=== PATIENT | female | born 1980 | race Caucasian/White ===

== ENCOUNTER 2016-06-11 18:14 | Emergency (ER) | payer OTHER ==
--- NOTE | ~2016-06-11 | CT4 ---
[facility] A Service of [facility] RADIOLOGY TEXT RESULTS PATIENT: AIMEE AIKEN LOCATION: SED : 82 UNIT #: [id number] AGE: [address]: Mickey Wiseman MD SEX: F ORDER DR: [id number] [place] [id number] E MR#: [id number] Acc #: [id number] NAME: AIMEE AIKEN : 1980 SEX: F STUDY DATE/TIME: 06/11/2016 18:45 UNIT: SED ROOM: STUDY DESCRIPTION: CT Abd and Pelv Wo Cont Attending Physician: Mickey Wiseman M.D. Ordering Physician: Gama Miles M.D. MEDICAL IMAGING REPORT This report is preliminary unless electronic signature is present. EXAM CT of the abdomen and pelvis without contrast INDICATIONS Nausea and right-sided abdominal pain for [address] of the abdomen and pelvis was performed without contrast. Coronal and sagittal reformatted images were obtained. This CT exam was performed with one or more of the following radiation dose reduction techniques: Automatic exposure control, adjustment of mA and/or kV according to patient size, and iterative reconstruction. No comparisons. FINDINGS Lung bases are clear. Liver, gallbladder and spleen are unremarkable. No evidence of renal or ureteral stone. There is no hydronephrosis. The adrenal glands are unremarkable. The pancreas is unremarkable. PELVIS: Trace free fluid likely physiologic. The colon is unremarkable. Normal appendix. The bone windows are unremarkable. IMPRESSION No acute abnormality. No evidence of renal stone. Normal appendix. Dictated by... Gregory Saucedo M.D. THIS IS AN ELECTRONICALLY VERIFIED REPORT Gregory Saucedo M.D. at 06/12/2016 10:04 AM ARS/psc [facility] A Service [facility] RADIOLOGY TEXT RESULTS PATIENT: AIMEE AIKEN LOCATION: SED : [birth year] UNIT #: [id number] AGE: [address]: Mickey Wiseman MD SEX: F ORDER DR: TD: 06/11/2016 23:20 JOB #: [id number] MEDICAL IMAGING REPORT Page 1 of 1
[2016-06-11 17:56] LABS: URINE SOURCE CLEAN CATCH
[2016-06-11 17:58] LABS: URINE APPEARANCE HAZY; URINE BILIRUBIN NEG (NEG); URINE BLOOD NEG (NEG); URINE COLOR YELLOW; URINE GLUCOSE NEG (NORM); URINE KETONE NEG (NEG); URINE LEUKOCYTE ESTERASE NEG (NEG); URINE NITRATE NEG (NEG); URINE PROTEIN NEG (NEG); URINE UROBILINOGEN 0.2 MG/DL (NORM)
[2016-06-11 17:59] LABS: MICRO INDICATED? NO
[~2016-06-11 18:14] MED LIST: BUSPIRONE HCL10 MG PO; PROZAC40 MG PO
[2016-06-11 19:03] LABS: ALBUMIN SERUM 4.1 g/dL (3.5-5.0); BILIRUBIN,TOTAL 0.7 mg/dL (0.2-2.0); BUN/CREATININE RATIO 17.14; CALCIUM SERUM 9.1 mg/dL (8.4-10.2); CREATININE SERUM 0.7 mg/dL (0.6-1.4); GLOM FILT RATE Estimated 112.3 mL/min (>60); POTASSIUM 3.9 mmol/L (3.5-5.1); PROTEIN TOTAL SERUM 6.6 g/dL (6.0-8.3)
== END 2016-06-11 20:23 | disposition home or self-care (01) ==
LOC: SED 18:14
PROVIDERS: Emergency Medicine
DX: R10.9 Unspecified abdominal pain (principal); Z79.899 Other long term (current) drug therapy
CPT/HCPCS: 36415; 74176; 80053; 81003; 84703; 96374; 96375; 99284; J2270; J2405

== ENCOUNTER 2016-06-13 09:52 | Emergency (ER) | payer OTHER | END 2016-06-13 10:26 | disposition home or self-care (01) | LOC: SED 09:52 | DX: R59.0 Localized enlarged lymph nodes (principal); N89.8 Other specified noninflammatory disorders of vagina; R11.2 Nausea with vomiting, unspecified; Z79.899 Other long term (current) drug therapy | CPT/HCPCS: 96372; 99283; J0696; J1885 ==

== ENCOUNTER 2016-07-19 10:18 | Emergency (ER) | payer OTHER | END 2016-07-19 11:35 | disposition home or self-care (01) | LOC: SED 10:18 | DX: S00.33XA Contusion of nose, initial encounter (principal); F41.9 Anxiety disorder, unspecified; F32.9 Major depressive disorder, single episode, unspecified; F17.200 Nicotine dependence, unspecified, uncomplicated; W22.8XXA Striking against or struck by other objects, initial encounter; Y92.9 Unspecified place or not applicable | CPT/HCPCS: 99283 ==

== ENCOUNTER 2016-08-04 10:58 | Emergency (ER) | payer OTHER | END 2016-08-04 13:30 | disposition home or self-care (01) | LOC: CED 10:58 → CFTX 10:58 | DX: S39.012A Strain of muscle, fascia and tendon of lower back, initial encounter (principal); F41.9 Anxiety disorder, unspecified; F32.9 Major depressive disorder, single episode, unspecified; F17.210 Nicotine dependence, cigarettes, uncomplicated; Z98.51 Tubal ligation status; Z88.5 Allergy status to narcotic agent; W18.42XA Slipping, tripping and stumbling without falling due to stepping into hole or opening, initial encounter; Y92.9 Unspecified place or not applicable | CPT/HCPCS: 84703; 96372; 99283; J1885 ==

== ENCOUNTER 2016-09-08 01:03 | Emergency (ER) | payer OTHER ==
[~2016-09-08] VITALS: Ht 162.6 cm; Wt 59.0 kg
--- NOTE | ~2016-09-08 | EKG ---
PATIENT: AIMEE AIKEN UNIT #: [id number] Ventricular Rate: 62 BPM Atrial Rate: 62 BPM P-R Interval: 162 ms QRS Duration: 84 ms Q-T Interval: 388 ms QTC Calculation(Bezet): 393 ms P [place]: 41 degrees Calculated R [place]: 21 degrees Calculated T [place]: 60 degrees Diagnosis Line: Normal sinus rhythm Diagnosis Line: Normal ECG Diagnosis Line: No previous ECGs available Diagnosis Line: Confirmed by NASRIN ANGELO MD ([id number]) on Diagnosis Line: 09/09/2016 12:44:59 PM INTERPRETING MD: GI PRATT
--- NOTE | ~2016-09-08 | CR72 ---
[facility] A Service of [facility] RADIOLOGY TEXT RESULTS PATIENT: AIMEE AIKEN LOCATION: SED : [birth year] UNIT #: [id number] AGE: [address]: Mickey Wiseman MD SEX: F ORDER DR: [id number] [place] [id number] E MR#: [id number] Acc #: [id number] NAME: AIMEE AIKEN : 1980 SEX: F STUDY DATE/TIME: 09/08/2016 1:50 UNIT: SED ROOM: STUDY DESCRIPTION: CR Chest Single View Portable Attending Physician: Mickey Wiseman M.D. Ordering Physician: Mickey Wiseman M.D. Primary Care Physician: No Primary Care Physician MEDICAL IMAGING REPORT This report is preliminary unless electronic signature is present. EXAM Portable chest INDICATIONS Chest pain today. PROCEDURE Frontal view chest. COMPARISON STUDIES None. FINDINGS Heart size normal. Lungs are clear. No pleural fluid. No pneumothorax. IMPRESSION No active process Dictated by... Pillo Oneill M.D. THIS IS AN ELECTRONICALLY VERIFIED REPORT Pillo Oneill M.D. at 09/08/2016 10:22 PM FAISAL/gonzales TD: 09/08/2016 09:12 JOB #: [id number] MEDICAL IMAGING REPORT Page 1 of 1
[2016-09-08 01:48] LABS: POC - CKMB <1.0 ng/mL (0.0-7.9); POC - TROPONIN <0.05 ng/mL (<=0.05)
[2016-09-08 01:57] LABS: BASOPHIL# 0.1 X10e3 (0-0.3); BASOPHIL% 0.7 % (0-2.5); EOSINOPHIL# 0.2 X10e3 (0-0.7); EOSINOPHIL% 2.8 % (0.0-7.0); HEMATOCRIT 43.1 % (35.0-45.0); HEMOGLOBIN 14.7 gm/dL (12.0-16.0); LYMPHOCYTE# 3.2 X10e3 (1.0-3.5); LYMPHOCYTE% 41.2 % (17.0-45.0); MEAN CORPUSCULAR HEMOGLOBIN 32.6 PG (28-34); MEAN PLATELET VOLUME 8.9 FL (6.5-11.5); MONOCYTE# 0.6 X10e3 (0-1.0); MONOCYTE% 7.9 % (3.0-12.0); NEUTROPHIL# 3.7 X10e3 (1.5-7.1); NEUTROPHIL% 47.4 % (40-75); PLATELET COUNT 220 X10e3 (140-420); RED BLOOD COUNT 4.49 X10e (3.90-5.30); RED CELL DISTRIBUTION WIDTH 12.6 % (11.0-15.5); WHITE BLOOD COUNT 7.8 X10e3 (4.0-10.5)
[2016-09-08 01:59] LABS: DIFF IND NO
[2016-09-08 02:07] LABS: BUN/CREATININE RATIO 22.5; CALCIUM SERUM 8.7 mg/dL (8.4-10.2); CREATININE SERUM 0.8 mg/dL (0.6-1.4); GLOM FILT RATE Estimated 95.6 mL/min (>60); POTASSIUM 4.2 mmol/L (3.5-5.1)
[2016-09-08 03:56] LABS: POC - CKMB <1.0 ng/mL (0.0-7.9)
[2016-09-08 03:57] LABS: POC - TROPONIN <0.05 ng/mL (<=0.05)
== END 2016-09-08 04:15 | disposition home or self-care (01) ==
LOC: SED 01:03
PROVIDERS: Emergency Medicine
DX: R07.89 Other chest pain (principal); F41.9 Anxiety disorder, unspecified; F17.200 Nicotine dependence, unspecified, uncomplicated
CPT/HCPCS: 36415; 71010; 80048; 82553; 84484; 85025; 93005; 96374; 99285

== ENCOUNTER → 2016-10-01 | Outpatient (CLI) | payer OTHER ==
[~2016-10-01] MED LIST changes: +KLONOPIN0.5 MG PO
--- NOTE | ~2016-10-01 | US17 ---
[facility] A Service of [facility] RADIOLOGY TEXT RESULTS PATIENT: AIMEE AIKEN LOCATION: [facility] : 81 UNIT #: [id number] AGE: [address]: VERNA ZENG APRN SEX: F ORDER DR: [id number] [facility] [address] [place], [place] [address] [id number] O MR#: [id number] Acc #: [id number] NAME: AIMEE AIKEN : 1980 SEX: F STUDY DATE/TIME: 10/01/2016 14:25 UNIT: [facility] ROOM: STUDY DESCRIPTION: US Breast Bilateral Attending Physician: Verna Zeng Aprn Referring Physician: Verna Zeng Aprn Ordering Physician: Verna Zeng Aprn Primary Care Physician: Verna Zeng Aprn MEDICAL IMAGING REPORT This report is preliminary unless electronic signature is present EXAM Bilateral breast ultrasound, 10/01/2016. HISTORY Yellow nipple discharge bilaterally for 3 months. No palpable abnormality. FINDINGS Ultrasound of the periareolar aspects of both breast reveals normal fibroglandular tissue. No cystic or solid mass lesions were identified. Minimally dilated ducts are seen in the subareolar left breast. Consider surgical consultation if bilateral breast discharge persists. IMPRESSION No sonographic evidence of malignancy in the periareolar aspects of both breasts. If bilateral breast discharge persists consider correlation with surgical consultation. Patients over the age of 40 are entered into a reminder system with target due date for the next mammogram. A result letter will also be sent to the patient. BIRADS: 1 Negative. Dictated by... Benito Overton M.D. THIS IS AN ELECTRONICALLY VERIFIED REPORT Benito Overton M.D. at 10/02/2016 2:37 PM JUSTYNA/meet TD: 10/01/2016 23:09 [facility] A Service of [facility] RADIOLOGY TEXT RESULTS PATIENT: AIMEE AIKEN [id number] [birth year] UNIT #: [id number] AGE: [address]: VERNA ZENG APRN SEX: F ORDER DR: JOB #: [id number] MEDICAL IMAGING REPORT Page 1 of 1 COPY
--- NOTE | ~2016-10-01 | MY26 ---
[facility] A Service of [facility] RADIOLOGY TEXT RESULTS PATIENT: AIMEE AIKEN LOCATION: [facility] : [birth year] UNIT #: [id number] AGE: [address]: VERNA ZENG APRN SEX: F ORDER DR: [id number] [facility] [address] [place], [place] [address] [id number] O MR#: [id number] Acc #: [id number] NAME: AIMEE AIKEN : 1980 SEX: F STUDY DATE/TIME: 10/01/2016 14:02 UNIT: [facility] ROOM: STUDY DESCRIPTION: MY [facility] DIAGNOSTIC W/ CAD BILAT Attending Physician: Verna Zeng Aprn Referring Physician: Verna Zeng Aprn Ordering Physician: Verna Zeng Aprn Primary Care Physician: Verna Zeng Aprn MEDICAL IMAGING REPORT This report is preliminary unless electronic signature is present EXAM Bilateral digital diagnostic mammogram with CAD device, 10/01/2016 HISTORY Bilateral yellow nipple discharge for 3 months and breast pain. No palpable abnormality. FINDINGS Bilateral digital diagnostic mammogram was performed in craniocaudal, mediolateral oblique and mediolateral projections demonstrating heterogeneously dense fibroglandular tissue which may limit the sensitivity of mammography. There is no suspicious mass or cluster of microcalcifications. The films have been reviewed by a FDA-approved CAD device. Ultrasound of the periareolar aspects of both breasts revealed that no abnormal finding within the right breast and only minimally dilated ducts in the subareolar left breast. Correlation with a surgical consultation is recommended if bilateral breast discharge persists. IMPRESSION No mammographic evidence of malignancy. Bilateral breast ultrasound was negative on the right and demonstrated only minimally dilated ducts in the subareolar left breast. Recommend surgical consultation if bilateral breast discharge persists. Annual mammogram is recommended with the patient reaches age of 40 or sooner if clinically indicated. BIRADS: 1 Negative. Patients over the age of 40 are entered into a reminder system with target due date for the next mammogram. A result letter will also be sent to the patient. [facility] A Service of [facility] RADIOLOGY TEXT RESULTS PATIENT: AIMEE AIKEN LOCATION: [facility] : [birth year] UNIT #: [id number] AGE: [address]: VERNA ZENG APRN SEX: F ORDER DR: Dictated by... Benito Overton M.D. THIS IS AN ELECTRONICALLY VERIFIED REPORT Benito Overton M.D. at 10/02/2016 2:37 PM KRT/pcl TD: 10/01/2016 21:57 JOB #: [id number] MEDICAL IMAGING REPORT Page 1 of 1 COPY
== END | disposition home or self-care (01) ==
LOC: CWCC 13:20
DX: N64.4 Mastodynia (principal); N64.52 Nipple discharge; Z80.3 Family history of malignant neoplasm of breast; N60.42 Mammary duct ectasia of left breast
CPT/HCPCS: 76641; G0204

== ENCOUNTER → 2016-10-01 | Outpatient (CLI) | payer OTHER ==
--- NOTE | ~2016-10-01 | CR181 ---
[facility] A Service of [facility] RADIOLOGY TEXT RESULTS PATIENT: AIMEE AIKEN LOCATION: [facility] : [birth year] UNIT #: [id number] AGE: [address]: VERNA ZENG APRN SEX: F ORDER DR: [id number] [facility] [address] [place], [place] [address] [id number] O MR#: [id number] Acc #: [id number] NAME: AIMEE AIKEN : 1980 SEX: F STUDY DATE/TIME: 10/01/2016 15:14 UNIT: [facility] ROOM: STUDY DESCRIPTION: CR Lumbar Spine 2 or 3 Views Attending Physician: Verna Zeng Aprn Referring Physician: Verna Zeng Aprn Ordering Physician: Verna Zeng Aprn Primary Care Physician: Verna Zeng Aprn MEDICAL IMAGING REPORT This report is preliminary unless electronic signature is present EXAM Lumbar spine 3 views, 10/01/2016 HISTORY Low back pain, pain in right side of lower back for 2 days. No known injury. FINDINGS Three views of the lumbar spine demonstrate no fracture. The posterior vertebral bodyline is intact and there is no anterolisthesis or retrolisthesis. The disc spaces are normally maintained. Scoliosis of the thoracolumbar spine is noted. IMPRESSION Thoracolumbar scoliosis. No acute abnormality in the lumbar spine. Dictated by... Benito Overton M.D. THIS IS AN ELECTRONICALLY VERIFIED REPORT Benito Overton M.D. at 10/02/2016 2:38 PM KRT/elke TD: 10/02/2016 00:14 JOB #: [id number] MEDICAL IMAGING REPORT Page 1 of 1 COPY
== END | disposition home or self-care (01) ==
LOC: CRAD 14:57
DX: M54.9 Dorsalgia, unspecified (principal); M41.9 Scoliosis, unspecified
CPT/HCPCS: 72100

== ENCOUNTER 2016-10-21 09:04 | Emergency (ER) | payer OTHER ==
[~2016-10-21] VITALS: Ht 163.8 cm; Wt 57.1 kg
[~2016-10-21 09:04] MED LIST changes: -KLONOPIN0.5 MG PO
[2016-10-21] MEDS ORDERED: KLONOPIN0.5 MG PO (09:23)
== END 2016-10-21 10:04 | disposition home or self-care (01) ==
LOC: SED 09:04
DX: J02.0 Streptococcal pharyngitis (principal); F17.210 Nicotine dependence, cigarettes, uncomplicated; Z79.899 Other long term (current) drug therapy; Z88.5 Allergy status to narcotic agent; Z88.8 Allergy status to other drugs, medicaments and biological substances
CPT/HCPCS: 99283

== ENCOUNTER 2016-11-05 14:59 | Emergency (ER) | payer OTHER ==
--- NOTE | ~2016-11-05 | CT101 ---
[facility] A Service of [facility] RADIOLOGY TEXT RESULTS PATIENT: AIMEE AIKEN LOCATION: SED : 82 UNIT #: [id number] AGE: [address]: RELL JACINTO SEX: F ORDER DR: [id number] [place] [id number] E MR#: [id number] Acc #: [id number] NAME: AIMEE AIKEN : 1980 SEX: F STUDY DATE/TIME: 11/05/2016 15:41 UNIT: SED ROOM: STUDY DESCRIPTION: CT Maxillofacial Area Wo Cont Attending Physician: Rell Jacinto Aprn Ordering Physician: Rell Jacinto Aprn Primary Care Physician: Verna Lane Aprn MEDICAL IMAGING REPORT This report is preliminary unless electronic signature is present. EXAM Maxillofacial CT without contrast date 11/05/[address] without contrast with coronal reformats. This CT exam was performed with one or more of the following radiation dose reduction techniques: automatic control, adjustment of mA and/or kV according to patient size, and iterative reconstruction. COMPARISON None. CLINICAL HISTORY Trismus since yesterday and unable to move jaw today. FINDINGS The frontal sinuses are normal. There is mild right anterior ethmoid mucosal thickening but the ethmoid air cells and sphenoid chambers are normal. There is right maxillary sinus mucosal thickening in the right maxillary air-fluid level and moderate left maxillary mucosal thickening. Nasal septum deviates rightward. There is no fracture or bone erosion or destruction. The bony features of the mandible and maxilla are otherwise normal. IMPRESSION 1. Right maxillary mucosal thickening and air-fluid level without bone erosion or destruction suggesting sinusitis with left maxillary and slight right anterior ethmoid mucosal thickening. 2. The bony structures of the mandible and maxilla are unremarkable and unenhanced images of the adjacent soft tissues are normal. No [facility] A Service of [facility] RADIOLOGY TEXT RESULTS PATIENT: AIMEE AIKEN LOCATION: SED : [birth year] UNIT #: [id number] AGE: [address]: RELL JACINTO SEX: F ORDER DR: inflammatory changes suggested by the appearance of the adjacent soft tissues nor is there suspicious mass or suspicious adenopathy seen on these images. Dictated by... Tian Alberto M.D. THIS IS AN ELECTRONICALLY VERIFIED REPORT Tian Alberto M.D. at 11/07/2016 2:08 PM KALYN/rnr TD: 11/06/2016 06:07 JOB #: [id number] MEDICAL IMAGING REPORT Page 1 of 1
[~2016-11-05 14:59] MED LIST changes: +KLONOPIN0.5 MG PO
== END 2016-11-05 16:53 | disposition home or self-care (01) ==
LOC: SED 14:59
DX: R68.84 Jaw pain (principal); F17.200 Nicotine dependence, unspecified, uncomplicated; F41.9 Anxiety disorder, unspecified; F32.9 Major depressive disorder, single episode, unspecified; Z88.5 Allergy status to narcotic agent
CPT/HCPCS: 70486; 99284